=== PATIENT | male | born 1955 | race Caucasian/White ===

== ENCOUNTER 2020-09-20 08:02 | Emergency (ER) | payer OTHER ==
[~2020-09-20] VITALS: Ht 190.5 cm; Wt 86.5 kg
[2020-09-20] MEDS ORDERED: OXYcodone/APAP 7.5/325MG TABLET ONE (08:24)
[2020-09-20] MEDS ORDERED: COLCHICINE 0.6 MG CAPSULE ONE (08:24)
[2020-09-20] MEDS ORDERED: COLCHICINE 0.6 MG CAPSULE PO ONE (08:30)
[2020-09-20] MEDS ORDERED: METOPROLOL TARTRATE 25 MG TAB PO ONE (08:30)
[2020-09-20] MEDS ORDERED: OXYcodone/APAP 7.5/325MG TABLET PO ONE (08:30)
[2020-09-20] MEDS ORDERED: METOPROLOL TARTRATE 25 MG TAB ONE (08:33)
--- NOTE | 2020-09-20 08:53 | NUR ---
PT MEDICATED FOR PAIN PER ORDERS. AWAITING XRAY. CONT TO MONITOR.
--- NOTE | 2020-09-20 09:20 | NUR ---
PT SLEEPING IN BED, PAIN MEDICATION EFFECTIVE.
--- NOTE | 2020-09-20 09:44 | NUR ---
PT REFUSED LAB DRAW, ERMD AWARE.
--- NOTE | 2020-09-20 10:38 | NUR ---
PT SPLINT COMPLETED. AWAITING D/C ORDERS.
--- NOTE | 2020-09-20 10:59 | NUR ---
PT D/C'D PER ORDERS. PT WITH STEADY GAIT UPON D/C, HAS ALL OWN BELONGINGS. PT GIVEN BUS PASS PER REQUEST.
[2020-09-20 11:00] VITALS: BP 167/89
--- NOTE | 2020-09-20 11:01 | NUR ---
DC EDUCATION PROVIDED, PT DEMONSTRATES UNDERSTANDING. PT AMBULATED STEADILY TO DC WITH RN AND SO. SO TO TRANSPORT PT HOME.
== END 2020-09-20 11:02 | disposition home or self-care (01) ==
LOC: ED 08:27
DX: M10.041 Idiopathic gout, right hand (principal); M10.031 Idiopathic gout, right wrist; M13.831 Other specified arthritis, right wrist; M19.041 Primary osteoarthritis, right hand
CPT/HCPCS: 29125; 99284